=== PATIENT | male | born 1960 | race Caucasian/White ===

== ENCOUNTER 2017-06-22 15:26 | Emergency (ER) | payer OTHER ==
[2017-06-22 15:28] VITALS: BP 174/86; PULSE 88; RESP 16; TEMP 98.1; O2SAT 98
[2017-06-22] MEDS ORDERED: LIPI40TA PO (15:39)
[2017-06-22] MEDS ORDERED: ASPI81CH CHEW (15:39)
[2017-06-22] MEDS ORDERED: NIAC500T5 PO (15:39)
[2017-06-22] MEDS ORDERED: FURO1TAB60 PO (15:39)
--- NOTE | 2017-06-22 15:53 | PD ---
HPI Chief Complaint: Skin Problem Time Seen by Provider: 15:39 Travel History International Travel<30 days: No Contact w/Intl Traveler<30days: No Traveled to known affect area: No History of Present Illness HPI Patient comes into the emergency department with concerns of possible infected ant bites. Patient states a few days ago he was wearing low socks instead of long socks when he was "attacked by ants" causing multiple bites on his bilateral lower extremities. Patient reports burning pain around the sites without radiation. Denies any fevers, chest pain, shortness of breath, weight loss, or other known injury. Patient has been trying to keep wounds clean and using Neosporin however is concerned they're getting worse and is worried they might be staph infection. Severity is mild. PFSH Past Medical History Cancer: No Cardiovascular Problems: Yes (bypass 2013) High Cholesterol: Yes Diabetes: No Diminished Hearing: No Endocrine: No Gastrointestinal Disorders: No Genitourinary: No Hypertension: Yes Immune Disorder: No Implanted Vascular Access Dvce: No Musculoskeletal: No Neurologic: No Psychiatric: No Reproductive: No Respiratory: No Tetanus Vaccination: < 5 Years Past Surgical History Coronary Artery Bypass Graft: Yes (5 way) Other Surgery: Yes Family History Family Myocardial Infarction: Yes (PARENTS) Social History Alcohol Use: Yes (every day..6 pack beer) Tobacco Use: Yes (occasionally) Substance Use: Yes (marijuana) Allergies-Medications (Allergen,Severity, Reaction): Coded Allergies: No Known Allergies (Verified , 06/22/17) Reported Meds & Prescriptions Reported Meds & Active Scripts Active Bactroban Topical (Mupirocin) 22 Gm Cream 1 Applic TOPICAL BID Bactrim DS (Sulfamethoxazole-Trimethoprim) 800-160 Mg Tab 1 Tab PO BID Reported Aspirin 81 Mg Chew 81 Mg CHEW DAILY Niacin 500 Mg Tab 500 Mg PO DAILY Lipitor (Atorvastatin Calcium) 40 Mg Tab 40 Mg PO HS Lasix (Furosemide) 40 Mg Tab 40 Mg PO BID Review of Systems Except as stated in HPI: all other systems reviewed are Neg Physical Exam Narrative GENERAL: Well-developed, overly nourished, in no acute distress, and non-ill appearing. SKIN: Infected and bites versus impetigo noted bilateral lower extremities. There is no abscess, crepitus, or signs of other infections. HEAD: Atraumatic. Normocephalic. EYES: Pupils equal and round. EOMI. No scleral icterus. No injection or drainage. ENT: No nasal bleeding or discharge. Mucous membranes pink and moist. NECK: Trachea midline. Supple. No nuclear rigidity. RESPIRATORY: No accessory muscle use. No respiratory distress. MUSCULOSKELETAL: No obvious deformities. No clubbing. No cyanosis. No edema. Full range of motion. NEUROLOGICAL: Awake and alert. No obvious cranial nerve deficits. Motor grossly within normal limits. Normal speech. PSYCHIATRIC: Appropriate mood and affect; insight and judgment normal. Data Data Last Documented VS Vital Signs Date Time Temp Pulse Resp B/P (MAP) Pulse Ox O2 Delivery O2 Flow Rate FiO2 06/22/17 16:10 06/22/17 15:28 98.1 88 16 98 MDM Medical Decision Making Medical Screen Exam Complete: Yes Emergency Medical Condition: Yes Differential Diagnosis Infected bite, impetigo, cellulitis, abscess, other Narrative Course The patient has impetigo versus infected insect bites. There is no evidence of necrotizing fasciitis at this time. There is no evidence of abscess. There is no evidence of local joint space involvement. There is no evidence of deep venous thrombosis. The patient will be discharged on antibiotics. The patient was given signs and symptoms warnings for worsening infection, such as spreading of redness, increasing pain, and/or swelling, associated heat, or fever and instructed to return immediately if these signs or symptoms worsen. The patient is to follow up with physician for recheck or return here in for recheck if unable to establish outpatient follow up. Sooner if worsens or as needed. The patient agrees with plan. Patient in no obvious distress upon re-evaluation. Patient was asked if they wanted to speak to my attending, which the patient did not wish to do at this time. Any questions/concerns in reference to patient diagnosis/condition discussed and clarified prior to patient's discharge. Reinforced sheer importance of close follow up with patient's primary physician or primary care clinic. Instructed patient to return to ED immediately, if symptoms return/ worsen. Pt showed understanding of above instructions. Further instructions and recommendations were detailed in discharge paperwork. Pt ambulated without difficulty out of ED at discharge. Diagnosis Primary Impression: Infected bite wound Referrals: [facility] Patient Instructions: Acute Wounds (ED), General Instructions, Impetigo (ED), Insect Bite or Sting (ED) Additional Instructions: Follow-up with your primary care physician in 3-5 days for reevaluation. Take all medication as prescribed. Return to the emergency department if symptoms get worse. Med/Other Pt SpecificInfo: Prescription(s) given Scripts Mupirocin Topical (Bactroban Topical) 22 Gm Cream 1 APPLIC TOPICAL BID for Mgmt Bacterial Infection, #1 TUBE 0 Refills Prov: Garett Villela MD 06/22/17 Sulfamethoxazole-Trimethoprim (Bactrim DS) 800-160 Mg Tab 1 TAB PO BID for Infection, #20 TAB 0 Refills Prov: Garett Villela MD 06/22/17 Disposition: 01 DISCHARGE HOME Condition: Stable Nilay Wilkerson Jun 22, 2017 15:53
[2017-06-22] MEDS ORDERED: BACT800T5 PO (15:54)
[2017-06-22] MEDS ORDERED: MUPI2%T TOPICAL (15:54)
== END 2017-06-22 16:11 | disposition home or self-care (01) ==
LOC: NEPD 15:26
DX: S80.862A Insect bite (nonvenomous), left lower leg, initial encounter (principal); S80.861A Insect bite (nonvenomous), right lower leg, initial encounter; L08.9 Local infection of the skin and subcutaneous tissue, unspecified; I10 Essential (primary) hypertension; E78.00 Pure hypercholesterolemia, unspecified; Z72.0 Tobacco use; Z95.1 Presence of aortocoronary bypass graft; Z86.79 Personal history of other diseases of the circulatory system; W57.XXXA Bitten or stung by nonvenomous insect and other nonvenomous arthropods, initial encounter
CPT/HCPCS: 99283